=== PATIENT | female | born 1930 | race Caucasian/White ===

== ENCOUNTER 2017-07-28 10:27 | Emergency (ER) | payer OTHER ==
[~2017-07-28 10:27] MED LIST: ASPI-COR81 M2 PO; ENALAPRIL10 M1 PO; PROCARDIA XL60 MG PO
[2017-07-28 14:54] VITALS: BP 143/74
== END 2017-07-28 14:54 | disposition home or self-care (01) ==
LOC: ED 10:27
DX: G47.00 Insomnia, unspecified (principal); I10 Essential (primary) hypertension